=== PATIENT | female | born 1950 | race Caucasian/White ===

== ENCOUNTER → 2022-06-13 | Outpatient (CLI) | payer MEDICARE | LOC: ORTHO 09:30 | PROVIDERS: ATTEND Orthopaedic Surgery | DX: M25.551 Pain in right hip (principal) ==

== ENCOUNTER → 2022-07-21 | Outpatient (CLI) | payer MEDICARE, OTHER ==
--- NOTE | 2022-07-21 16:37 | Diagnostic Imaging Report ---
INDICATION: PAIN AND WEAKNESS OF HIP COMPARISON: 02/28/2022 FINDINGS: 2 radiographic views of the right hip were obtained. There are expected postsurgical changes of previous right hip hemiarthroplasty. There is appropriate anatomic alignment of the femoral component in relation to the acetabulum. The stem of the femoral component is located centrally in the medullary cavity. There is no periprosthetic fracture. No acute fracture or dislocation is identified. No unexpected radiopaque foreign bodies identified. IMPRESSION: Expected postsurgical changes of previous right hip hemiarthroplasty . No evidence of hardware compromise. Dictated by: Dictated on workstation # [id number]
== END ==
LOC: ORTHO 13:44
PROVIDERS: ATTEND Orthopaedic Surgery
DX: M25.551 Pain in right hip (principal); Z96.641 Presence of right artificial hip joint
CPT/HCPCS: 73502; G0463; 99213

== ENCOUNTER → 2022-09-22 | Outpatient (CLI) | payer MEDICARE, OTHER | LOC: ORTHO 14:56 | PROVIDERS: ATTEND Orthopaedic Surgery | DX: M25.551 Pain in right hip (principal) | CPT/HCPCS: 99213 ==

== ENCOUNTER → 2022-11-24 | Outpatient (CLI) | payer MEDICARE, OTHER | LOC: ORTHO 10:01 | PROVIDERS: ATTEND Orthopaedic Surgery | DX: M25.552 Pain in left hip (principal); Z96.642 Presence of left artificial hip joint | CPT/HCPCS: 99213 ==

== ENCOUNTER → 2022-12-27 | Outpatient (CLI) | payer MEDICARE, OTHER | LOC: ORTHO 13:52 | PROVIDERS: ATTEND Orthopaedic Surgery | DX: Z01.89 Encounter for other specified special examinations (principal); M25.551 Pain in right hip; Z96.641 Presence of right artificial hip joint ==

== ENCOUNTER 2023-01-03 05:31 | Outpatient (CLI) | payer MEDICARE, OTHER ==
[~2023-01-03] VITALS: Ht 160 cm; Wt 61.8 kg
[2023-01-03 09:09] LABS: BILIRUBIN,URINE NEGATIVE (NEGATIVE); CLARITY,URINE CLEAR; COLOR,URINE YELLOW; GLUCOSE, URINE (UA) NEGATIVE (NEGATIVE); KETONES,URINE NEGATIVE (NEGATIVE); LEUKOCYTE ESTERASE ,URINE NEGATIVE (NEGATIVE); NITRITE,URINE NEGATIVE (NEGATIVE); PROTEIN,URINE NEGATIVE (NEGATIVE)
[2023-01-03 09:18] LABS: BACTERIA,URINE NEGATIVE /HPF
[2023-01-03] MEDS ORDERED: OMEG1CAP58 PO (09:19)
[2023-01-03] MEDS ORDERED: LEVO75CA5 PO (09:19)
[2023-01-03] MEDS ORDERED: PYRI50CA PO (09:19)
[2023-01-03] MEDS ORDERED: VITA0.4T18 PO (09:19)
[2023-01-03] MEDS ORDERED: VERA240C2 PO (09:19)
[2023-01-03] MEDS ORDERED: DIPH25CA79 PO (09:19)
[2023-01-03] MEDS ORDERED: MAGN250C PO (09:19)
[2023-01-03] MEDS ORDERED: PRAM0.5T2 PO (09:19)
[2023-01-03] MEDS ORDERED: TURM500T PO (09:19)
[2023-01-03] MEDS ORDERED: VITA100033 PO (09:19)
[2023-01-03] MEDS ORDERED: PRAM0.252 PO (09:19)
[2023-01-03] MEDS ORDERED: NF-PYRD60T PO (09:19)
[2023-01-03] MEDS ORDERED: CHOL200025 PO (09:19)
[2023-01-03] MEDS ORDERED: VITA100C23 PO (09:19)
[2023-01-03] MEDS ORDERED: ZINC50TA51 PO (09:19)
[2023-01-03 09:46] VITALS: BP 132/78
--- NOTE | 2023-01-03 16:25 | Diagnostic Imaging Report ---
INDICATION: Preop for hip surgery. No prior studies are available for comparison. FINDINGS: Heart size is normal. There appears to be some minimal infiltrate in the right upper lobe. Otherwise, lungs are clear. No effusion or pneumothorax is detected. There are surgical clips in the right axilla. IMPRESSION: Minimal infiltrate in the right upper lobe. Dictated by: Dictated on workstation # [id number]
== END 2023-01-03 17:42 ==
LOC: PREOP 05:31
PROVIDERS: ATTEND Orthopaedic Surgery
DX: Z01.818 Encounter for other preprocedural examination (principal); M25.551 Pain in right hip
CPT/HCPCS: 71046; 81000; 87081

== ENCOUNTER 2023-01-09 06:35 | Inpatient (IN) | payer MEDICARE, OTHER ==
[2023-01-09] VITALS (12 sets, daily range): BP systolic 102–144; BP diastolic 53–98
[~2023-01-09] VITALS: Ht 160 cm; Wt 61.8 kg
[~2023-01-09 06:35] MED LIST: CHOL200025 PO; DIPH25CA79 PO; LEVO75CA5 PO; MAGN250C PO; NF-PYRD60T PO; OMEG1CAP58 PO; PRAM0.252 PO; PRAM0.5T2 PO; PYRI50CA PO; TURM500T PO; VERA240C2 PO; VITA0.4T18 PO; VITA100033 PO; VITA100C23 PO; ZINC50TA51 PO
[2023-01-09] MEDS ORDERED: ceFAZolin INJECTION 2,000 MG in NS (IVPB) 50 ML IV ONE (06:45)
[2023-01-09] MEDS: LACTATED RINGERS 1,000 ML IV PRN ×3 (07:00→10:40)
[2023-01-09] MEDS ORDERED: proPOfol 200 MG/20 ML (DIPRIVAN) VIAL IV ONE (07:49)
[2023-01-09] MEDS ORDERED: ROCURONIUM 50 MG/5 ML (ZEMURON) VIAL IV ONE (07:49)
[2023-01-09] MEDS ORDERED: fentaNYL INJ 100 MCG/2 ML AMP ONE (07:49)
[2023-01-09] MEDS ORDERED: LIDOCAINE PF 2% 5 ML (XYLOCAINE) VIAL ONE (07:49)
[2023-01-09] MEDS ORDERED: ONDANSETRON 4 MG/2 ML (SDV) Z0FRAN ONE (07:49)
[2023-01-09] MEDS ORDERED: GLYCOPYRROLATE 0.2 MG/ML (ROBINUL) 2 ML VIAL ONE (07:49)
[2023-01-09] MEDS ORDERED: NEOSTIGMINE (BLOXIVERZ ) 1 MG/1ML 10 ML VIAL ONE (07:50)
--- NOTE | 2023-01-09 08:38 | Progress Note-Pre Operative ---
Pre-Operative Progress Note Date of Available H&P: December 27, 2022 Date H&P Reviewed: Jan 09, 2023 Time H&P Reviewed: 08:30 History & Physical: H&P Reviewed, Patient Examed, No changes noted Pre-Operative Diagnosis: Right Hip Pain; History of Right Hip Hemiarthroplasty GREGORY CHIANG MD Jan 09, 2023 08:37
[2023-01-09] MEDS ORDERED: SEVOFLURANE (ULTANE) 15 ML INHAL SOLN ONE (10:23)
--- NOTE | 2023-01-09 10:48 | Anesthesia-General Post-Op ---
General Patient Condition Mental Status/LOC: Same as Preop Cardiovascular: Satisfactory Nausea/Vomiting: Absent Respiratory: Satisfactory Pain: Controlled Complications: Absent Post Op Complications Complications None Follow Up Care/Instructions Patient Instructions None needed. Anesthesia/Patient Condition Patient Condition Patient is doing well, no complaints, stable vital signs, no apparent adverse anesthesia problems. No complications reported per nursing. NILO SHARP CRNA Jan 09, 2023 10:48
[2023-01-09] MEDS ORDERED: morphine INJ 10 MG/ML 1ML (SYR OR VIAL) ONE (10:55)
[2023-01-09] MEDS ORDERED: ONDANSETRON 4 MG/2 ML (SDV) Z0FRAN IVP PRN (11:00)
[2023-01-09] MEDS ORDERED: fentaNYL INJ 100 MCG/2 ML AMP IVP ONE (11:00)
[2023-01-09] MEDS ORDERED: morphine INJ 10 MG/ML 1ML (SYR OR VIAL) IVP ONE (11:00)
--- NOTE | 2023-01-09 11:04 | Operative Report - Ortho ---
Operative Report Surgeon (s)/Administrative Assistant (s) Surgeon GREGORY CHIANG MD Administrative Assistant n/a Pre-Operative Diagnosis Right Hip Pain; History of Right Hip Hemiarthroplasty Post-Operative Diagnosis same Operative Report Date of Procedure: Jan 09, 2023 Name of Procedure Performed: Conversion of Right Hip Hemiarthroplasty to Total Hip Arthroplasty Description & Findings After obtaining informed consent and marking the patient in the preoperative holding area, the patient did receive antibiotics and was taken to the operating room. General anesthesia was induced and patient was positioned in the lateral decubitus position with the right side up. Right lower extremity was prepped and draped in the usual sterile fashion. Surgical timeout was taken. Prior surgical scar was used. Posterolateral approach was utilized. Noted to have an area of disruption in the anterolateral interval. Capsule and external rotators were taken down in one layer. Prior bipolar was dislocated without difficulty. Bone tamp and mallet was used to remove prior head and bipolar component. Acetabulum was exposed. Labrum and soft tissue was removed from the acetabulum. Sequential reaming was began beginning with a 43 mm reamer and reaming to 50 mm. Acetabulum was lavaged with normal saline; a 50 mm cup was impacted into place and had excellent press fit. A polyethylene liner was put into place and impacted to lock; locking was verified with a freer. Attention was turned to the femoral side, neutral 32 mm trial head was put into place. Leg lengths were grossly equal; the hip was stable in position of sleep, and but had some instability in flexion and internal rotation. Hip was dislocated and a +4 mm trial head was placed. This was located and found to be stable. This was accepted. Hip was dislocated. A +4 32 mm oxinium head was impacted onto the pineda taper of the stem. Hip was once again located and found to have grossly equal leg lengths with stability in position of sleep as well as flexion and internal rotation. Dilute betadine soak was performed. Hip was irrigated. Posterior capsule and external rotators were repaired using #2 fiberwire through transosseous tunnels. The prior interval was also repaired with #2 fiberwire. The fascial layer was closed with #2 StrataFix. The subcutaneous layer was closed with 2-0 Vicryl. Skin was closed with zayda. Wound was dressed with xeroform, 4x4s, ABD, and tape. Patient was placed in abduction pillow and transferred to his hospital bed without difficulty and was stable to the recovery room. Anesthesia Type General Estimated Blood Loss 150 mL Specimen(s) collected/removed None GREGORY CHIANG MD Jan 09, 2023 11:04
[2023-01-09] MEDS ORDERED: MILK OF MAGNESIA 400 MG/5 ML 30 ML UDC PO PRN (11:15)
[2023-01-09] MEDS ORDERED: BISACODYL 5 MG (DULCOLAX) TABLET PO PRN (11:15)
[2023-01-09] MEDS ORDERED: ACETAMINOPHEN 500 MG TAB (TYLENOL) PO PRN (11:15)
[2023-01-09] MEDS: ONDANSETRON 4 MG/2 ML (SDV) Z0FRAN IV PRN ×2 (12:47→16:27)
[2023-01-09] MEDS: 1/2 NS IV SOLUTION 1,000 ML IV SCH (12:47)
[2023-01-09] MEDS ORDERED: NF-PYRD60T PO (13:39)
--- NOTE | 2023-01-09 14:06 | Physical Therapy Evaluation ---
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 3-Xkxfskzrri-fxgxtfx completes the activity by him/herself with no assistance from a helper. 5-Set-up or Clean-up Assistance-helper sets up or cleans up; patient completes activity. [place] assists only prior to or following the activity. 4-Supervision or Touching Assistance-helper provides verbal cues and/or touching/steadying and/or contact guard assistance as patient completes activity. Assistance may be provided throughout the activity or intermittently. 3-Partial/Moderate Assistance-helper does LESS THAN HALF the effort. [place] lifts, holds or supports trunk or limbs, but provides less than half the effort. 2-Substantial/Maximal Assistance-helper does MORE THAN HALF the effort. [place] lifts or holds trunk or limbs and provides more than half the effort. 0-Vvtvtcxpx-pfpzqz does ALL the effort. Patient does none of the effort to complete the activity. Or, the assistance of 2 or more helpers is required for the patient to complete the activity. If activity was not attempted, code reason: 7-Patient Refused. 9-Not Applicable-not attempted and the patient did not perform the activity before the current illness, exacerbation or injury. 10-Not Attempted due to Environmental Limitations-(lack of equipment, weather restraints, etc.). 88-Not Attempted due to Medical Conditions or Safety Concerns. Bed Mobility: 6 Transfers (B,C,W/C): 6 Gait: 6 Stairs: 6 Indoor Mobility (Ambulation): Independent Stairs: Independent Prior Devices Use: Other-see list below Prior Device Use: cane PT Evaluation-Current Subjective Patient agrees to PT. Pain Numeric Pain Scale: 10-Worst Possible Pain Location: Right Location Body Site: Hip Pain Description: Acute Comment: with movement Objective Patient Orientation: Normal For Age Attachments: Lyn Catheter, IV ROM/Strength ROM Lower Extremities right hip precautions (patient able to recite independently)/left LE WFL Strength Lower Extremities right LE NT/left LE 3/5 grossly Integumentary/Posture Integumentary refer to nursing notes Bowel Incontinence: No Bladder Incontinence: Lyn Cath Posture WFL Neuromuscular (Tone, Coordination, Reflexes) grossly intact Sensory Vision: Functional Hearing: Functional Transfers Sit to Lying (QC): 1 Lying to Sitting/Side of Bed(Q: 1 Sit to Stand (QC): 88 Gait Does the Patient Walk?: No and Walking Goal IS indicated Mode of Locomotion: Walk Anticipated Mode of Locomotion: Walk Walk 10 feet (QC): 88 Gait Assistive Device: FWW Balance Sitting Static: Fair Sitting Dynamic: Poor Assessment/Needs Patient will benefit from skilled PT to address functional strength and mobility to improve current LOF to safely return to home with spouse at maximum LOF. Rehab Potential: Fair PT Short Term Goals Short Term Goals Time Frame: Jan 19, 2023 Roll Left & Right: 4 Sit to lyin Lying to sitting on side of be: 4 Sit to stand: 4 Chair/hjr-aj-ecdud transfer: 4 Toilet transfer: 4 Walk 10 feet: 3 Walk 50 feet with two turns: 3 PT Skilled Nursing Goals Processes Chemical Design Engineer Goals PT Skilled Nursing Goals Time Frame: Jan 28, 2023 Roll Left & Right (QC): 6 Sit to Lying (QC): 6 Lying-Sitting on Side/Bed(QC): 6 Sit to Stand (QC): 5 Chair/Kwv-yo-Mghxw Xfer(QC): 5 Toilet Transfer (QC): 5 Walk 10 feet (QC): 5 Walk 50ft with 2 Turns (QC): 5 Walk 150 ft (QC): 5 PT Plan Problem List Problem List: Activity Tolerance, Functional Strength, Safety, Balance, Gait, Transfer, Bed Mobility Treatment/Plan Treatment Plan: Continue Plan of Care Treatment Plan: Bed Mobility, Education, Functional Activity Lona, Functional Strength, Gait, Safety, Therapeutic Exercise, Transfers Treatment Duration: Jan 28, 2023 Frequency: 11 times per week Estimated Hrs Per Day: .5 hour per day Patient and/or Family Agrees t: Yes Time Time In: 1330 Time Out: 1352 DATE: Jan 09, 2023 Total Billed Treatment Time: 22 Total Billed Treatment 1 visit [facility] 22 min SHANNAN SANTOS PT Jan 09, 2023 14:06
--- NOTE | 2023-01-09 14:10 | Diagnostic Imaging Report ---
CLINICAL INDICATION: Postop hip replacement. EXAM: X-ray pelvis AP view. COMPARISON: Outside x-ray of the pelvis right hip dated 02/23/2022 from [facility]. FINDINGS: Right total hip arthroplasty is again seen. There are skin zayda overlying the right hip and air overlying the right hip region. Hardware components in good position. There are no significant bony abnormality. IMPRESSION: There is a revision right total hip arthroplasty components in good position. There is no unexpected radiodense foreign object. Dictated by: Dictated on workstation # [id number]
[2023-01-09] MEDS ORDERED: PATIENT MAY USE OWN MED,SINGLE MED PO SCH ×4 (15:45)
[2023-01-09] MEDS ORDERED: PRAMIPEXOLE 0.5 MG TAB (MIRAPEX) PO SCH (16:00)
[2023-01-09] MEDS: morphine INJ 4 MG/ML 1 ML (VIAL/SYRINGE) IVP PRN ×2 (16:27→19:35)
[2023-01-09] MEDS: ceFAZolin INJECTION 2,000 MG in NS (IVPB) 50 ML IV SCH ×2 (16:28→21:12)
[2023-01-09] MEDS: PRAMIPEXOLE 0.5 MG TAB (MIRAPEX) PO SCH ×2 (16:33→21:14)
[2023-01-09] MEDS: ASPIRIN E.C. 81 MG (ECOTRIN) TAB PO SCH (17:51)
[2023-01-09] MEDS ORDERED: PRAMIPEXOLE 0.125 MG (MIRAPEX) TABLET PO SCH (20:00)
[2023-01-09] MEDS ORDERED: NON-FORMULARY MEDICATION 1 EA EA (Pramipexole Di-HCl (Mirapex) 0.25 MG) PO SCH (21:00)
[2023-01-09] MEDS: DOCUSATE SODIUM 100 MG (COLACE) CAP PO SCH (21:13)
[2023-01-09] MEDS: CELECOXIB 100 MG (CeleBREX) CAP PO SCH (21:13)
[2023-01-09] MEDS: PYRIDOSTIGMINE 60 MG TAB (MESTINON) NON-FORMULARY PO SCH (21:16)
[2023-01-10] MEDS: morphine INJ 4 MG/ML 1 ML (VIAL/SYRINGE) IVP PRN ×2 (00:24→04:03)
[2023-01-10] MEDS: 1/2 NS IV SOLUTION 1,000 ML IV SCH ×2 (02:22→16:15)
[2023-01-10 03:35] VITALS: BP 113/59
[2023-01-10] MEDS: PRAMIPEXOLE 0.5 MG TAB (MIRAPEX) PO SCH ×4 (05:55→20:00)
[2023-01-10] MEDS: LEVOTHYROXINE 75 MCG (LEVOTHROID) TABLET PO SCH (05:55)
[2023-01-10] MEDS: MULTIVIT W/MINERALS TAB (THERAGRAN M) PO SCH (05:56)
[2023-01-10 07:25] VITALS: BP 106/59
[2023-01-10] MEDS: ONDANSETRON 4 MG/2 ML (SDV) Z0FRAN IV PRN ×2 (08:44→18:04)
[2023-01-10] MEDS: DOCUSATE SODIUM 100 MG (COLACE) CAP PO SCH ×2 (08:44→20:00)
[2023-01-10] MEDS: MAGNESIUM OXIDE (MAG-OX)400 MG TAB PO SCH (08:45)
[2023-01-10] MEDS: ASPIRIN E.C. 81 MG (ECOTRIN) TAB PO SCH ×2 (08:45→17:46)
[2023-01-10] MEDS: VERAPAMIL SR 240 MG (CALAN SR) TAB PO SCH (08:45)
[2023-01-10] MEDS: CELECOXIB 100 MG (CeleBREX) CAP PO SCH ×2 (08:45→19:59)
[2023-01-10] MEDS: PYRIDOXINE (VITAMIN B-6) 50 MG TABLET PO SCH (08:46)
[2023-01-10] MEDS: diphenhydrAMINE 25 MG TAB (BENADRYL) PO SCH (08:46)
[2023-01-10] MEDS: PYRIDOSTIGMINE 60 MG TAB (MESTINON) NON-FORMULARY PO SCH ×2 (08:47→19:58)
[2023-01-10] MEDS ORDERED: MAGNESIUM CITRATE AND OXIDE 250 MG PO SCH (09:00)
[2023-01-10] MEDS ORDERED: NON-FORMULARY MEDICATION 1 EA EA (Levothyroxine Sodium (Levothyroxine) 75 MCG) PO SCH (09:00)
[2023-01-10] MEDS ORDERED: NON-FORMULARY MEDICATION 1 EA EA (Verapamil HCl (Verapamil ER) 240 MG) PO SCH (09:00)
[2023-01-10] MEDS ORDERED: NON-FORMULARY MEDICATION 1 EA EA (Diphenhydramine HCl (Benadryl) 25 MG) PO SCH (09:00)
[2023-01-10] MEDS ORDERED: PYRIDOXINE HCL 50 MG PO SCH (09:00)
--- NOTE | 2023-01-10 10:02 | Progress Note - Ortho ---
Progress Note Subjective Date of Exam 01/10/23 Chief Complaint POD #1 Conversion to R CARLITA HPI/Events since last exam has issues with nausea, restless leg, overall anxiety, concerned about moving, has had issues with pain medication Review of Systems - Allergies: Coded Allergies: ciprofloxacin (Verified Allergy, Intermediate, Nausea, 01/03/23) codeine (Verified Allergy, Intermediate, Itching, 01/03/23) levofloxacin (Verified Allergy, Intermediate, Nausea, 01/03/23) NAUSEA, WOOZY, [place] ofloxacin (Verified Allergy, Intermediate, Nausea, 01/03/23) Home Meds Reported Medications Pyridostigmine Carmel (Mestinon) 60 Mg Tab, 60 MG PO DAILY PRN for DOUBLE VISION, TAB 01/09/23 Vitamin K2 (Vitamin K2) 100 Mcg Capsule, 100 MCG PO DAILY, CAP 01/03/23 Vitamin E Mixed (Vitamin E) 1,000 Unit Capsule, 1000 UNIT PO DAILY, CAP 01/03/23 Cholecalciferol (Vitamin D3) (Vitamin D3) 50 Mcg (2000 Unit) Tablet, 50 MCG PO DAILY, TAB 01/03/23 Pyridoxine HCl (Vitamin B-6) 50 Mg Capsule, 50 MG PO DAILY, CAP 01/03/23 Diphenhydramine HCl (Benadryl) 25 Mg Capsule, 25 MG PO DAILY, CAP 01/03/23 Magnesium Citrate and Oxide (Magnesium) 250 Mg Capsule, 250 MG PO DAILY, CAP 01/03/23 Turmeric Root Extract (Turmeric) 500 Mg Tablet, 500 MG PO DAILY, TAB 01/03/23 Vitamin B Complex/Folic Acid (Super B Maxi Complex Caplet) 0.4 Mg Tablet, 0.4 MG PO DAILY, TAB 01/03/23 Zinc Amino Acid Chelate (Zinc) 50 Mg Tablet, 50 MG PO DAILY, TAB 01/03/23 Warners-3 Fatty Acids/Fish Oil (Warners 3 1,000 mg Softgel) 300 Mg-1,000 Mg Capsule, 1 EACH PO BID, CAP 01/03/23 Levothyroxine Sodium (Levothyroxine) 75 Mcg Capsule, 75 MCG PO DAILY, CAP 01/03/23 Pramipexole Di-HCl (Mirapex) 0.5 Mg Tablet, 0.5 MG PO 0700,1600, TAB 01/03/23 Pramipexole Di-HCl (Mirapex) 0.25 Mg Tablet, 0.25 MG PO 1200,2000, TAB 01/03/23 Pyridostigmine Carmel (Mestinon) 60 Mg Tab, 60 MG PO 0700,1200, TAB 01/03/23 Verapamil HCl (Verapamil ER) 240 Mg Cap24h.pel, 240 MG PO DAILY, CAP 01/03/23 Objective Exam R Hip: Dressing C/D/I, +DF of ankle, no s/s of DVT Vital Signs Vital Signs Date Time Temp Pulse Resp B/P (MAP) Pulse Ox O2 Delivery O2 Flow Rate FiO2 01/10/23 08:00 Room Air 01/10/23 07:25 36.4 62 16 106/59 (75) 97 Room Air 01/10/23 03:35 36.0 69 16 113/59 (77) 93 Room Air 0.00 0.00 01/09/23 23:25 36.9 64 16 102/61 (75) 97 Room Air 0.00 0.00 01/09/23 20:00 Room Air 01/09/23 19:13 36.8 79 16 130/90 (103) Room Air 0.00 01/09/23 15:53 36.9 90 18 144/98 (113) 91 Room Air 01/09/23 15:45 36.4 78 18 125/57 (79) 98 Room Air 01/09/23 12:04 36.0 71 18 113/58 (76) 95 Room Air 01/09/23 11:45 Room Air 01/09/23 11:30 36.2 15 109/63 (78) 97 Room Air 01/09/23 11:30 Room Air 01/09/23 11:20 16 115/53 (73) 96 Room Air 01/09/23 11:15 Room Air 01/09/23 11:10 16 130/67 (88) 100 OxyMask 2.00 01/09/23 11:00 20 126/56 (79) 99 OxyMask 2.00 01/09/23 11:00 OxyMask 2.00 01/09/23 10:50 18 117/63 (81) 96 OxyMask 4.00 01/09/23 10:40 36.3 20 123/83 (96) 99 OxyMask 6.00 01/09/23 10:40 OxyMask 6.00 I & O 01/10/23 07:00 Intake Total 3130 ml Output Total 1195 ml Balance 1935 ml Lab Results Laboratory Tests 01/10/23 04:22: Hemoglobin 10.0L, Hematocrit 29L Imaging AP Pelvis from postop demonstrates appropriate position of components without complication Assessment and Plan Assessment R Hip Pain s/p Conversion of Hemiarthroplasty to CARLITA Problem List R Hip Pain s/p Conversion of Hemiarthroplasty to CARLITA Plan PT/OT Pain Control DVT Prophylaxis Home with Home Health tomorrow versus Will have her evaluated for acute rehab just in case Final Diagonsis R Hip Pain s/p Conversion of Hemiarthroplasty to CARLITA Level of the visit: Level 3 (global) GREGORY CHIANG MD Jan 10, 2023 10:02
--- NOTE | 2023-01-10 11:11 | Occupational Therapy Eval ---
OT Evaluation-General/PLF Medical Diagnosis Admission Date Medical Diagnosis: right hip pain Onset Date: Jan 09, 2023 Therapy Diagnosis Therapy Diagnosis: weakness Precautions Precautions/Isolations: Standard Precautions Weight Bear Status Weight Bearing Restriction: Weight Bearing/Tolerated Location Restriction: R LE Conversion to R CARLITA Referral Physician: Carla Referral Reason: Activity Tolerance, Self Care, Evaluation/Treatment Medical History Pertinent Medical History: Neuropathy Reviewed History: Yes Social History Home: Single Level Current Living Status: Spouse ADL-Prior Level of Function SCALE: Activities may be completed with or without assistive devices. 6-Pbujpzhlxt-pqkhjdg completes the activity by him/herself with no assistance from a helper. 5-Set-up or Clean-up Assistance-helper sets up or cleans up; patient completes activity. [place] assists only prior to or following the activity. 4-Supervision or Touching Assistance-helper provides verbal cues and/or touch ing/steadying and/or contact guard assistance as patient completes activity. Assistance may be provided throughout the activity or intermittently. 3-Partial/Moderate Assistance-helper does LESS THAN HALF the effort. [place] lifts, holds or supports trunk or limbs, but provides less than half the effort. 2-Substantial/Maximal Assistance-helper does MORE THAN HALF the effort. [place] lifts or holds trunk or limbs and provides more than half the effort. 0-Srcydtpfy-oitzli does ALL the effort. Patient does none of the effort to complete the activity. Or, the assistance of 2 or more helpers is required for the patient to complete the activity. If activity was not attempted, code reason: 7-Patient Refused. 9-Not Applicable-not attempted and the patient did not perform the activity before the current illness, exacerbation or injury. 10-Not Attempted due to Environmental Limitations-(lack of equipment, weather restraints, etc.). 88-Not Attempted due to Medical Conditions or Safety Concerns. Self Care: Independent Functional Cognition: Independent DME/Equipment Comments Patient did not use ADS at home, requires instruction for use of FWW with ADL, transfers and functional activity Drive Self: Yes OT Current Status Subjective Laying in bed, c/o nausea, not feeling like eating, mot wanting to take medication on empty stomach. Multitude of choices presented to patient for PO intake. Patient agreed to BROTH and then refused to drink Mental Status/Objective Patient Orientation: Person, Place, Time, Situation Current Glasses/Contacts: Yes Upper Extremity ROM BUE ROM WFLS Upper Extremity Coordination BUE WFLS Upper Extremity Strength -4/5 B UE, patient does not safely lower self to sitting position BUE weakness ADL-Treatment Eating (QC): 5 (regular diet) Oral Hygiene (QC): 5 Shower/Bathe Self (QC): 7 Upper Body Dressing (QC): 4 Lower Body Dressing (QC): 4 On/Off Footwear (QC): 3 Toileting Hygiene (QC): 4 Education OT Patient Education: Correct positioning, Modified ADL techniques, Progress toward Goal/Update tx plan, Purpose of tx/functional activities, Reviewed precautions, Rehab process, Safety issues, Transfer techniques, Use of adapted equipment Teaching Recipient: Patient, Family (spouse present) Teaching Methods: Demonstration, Discussion Response to Teaching: Verbalize Understanding, Reinforcement Needed Patient has multitude of questions and OT answers until all needs met OT Skilled Nursing Goals Jewelry Maker Goals Eating (QC): 6 Oral Hygiene (QC): 6 Toileting Hygiene (QC): 6 Shower/Bathe Self (QC): 5 Upper Body Dressing (QC): 6 Lower Body Dressing (QC): 6 On/Off Footwear (QC): 6 Patient will follow all Post op restriction w/I/ADLS and functional mobility independently with ADS 1=Demonstrate adherence to instructed precautions during ADL tasks. 2=Patient will verbalize/demonstrate understanding of assistive devices/modifications for ADL. 3=Patient will improve strength/tolerance for activity to enable patient to perform ADL's. OT Education/Plan Problem List/Assessment Assessment: Decreased Activ Tolerance, Impaired Self-Care Skills Discharge Recommendations Plan/Recommendations: Continue POC Therapy Discharge Recommendati: Post Acute OT Equpiment Recommendations-D/C: Hip Kit Treatment Plan/Plan of Care Treatment,Training & Education: Yes Patient would benefit from OT for education, treatment and training to promote independence in ADL's, mobility, safety and/or upper extremity function for ADL's. Plan of Care: ADL Retraining, Functional Mobility, Group Exercise/Act as Ind, UE Funct Exercise/Act Treatment Duration: Jan 14, 2023 Frequency: 3 times per week (3-5 times per week) Estimated Hrs Per Day: .25 hour per day Agreement: Yes Rehab Potential: Good Time Start Time: 08:30 Stop Time: 08:47 DATE: Jan 10, 2023 Total Time Billed (hr/min): 17 Billed Treatment Time EVM 17 min MELANIE POSADAS OT Jan 10, 2023 11:11
--- NOTE | 2023-01-10 11:12 | Physical Therapy Daily Note ---
PT Daily Note-Current Subjective Patient agrees to therapy. Pain Section J - Health Conditions 1. Rarely or not at all 2. Occasionally 3. Frequently 4. Almost constantly 8. Unable to answer Pain Effect on Sleep: 3 Pain Interference with Therapy: 3 Pain Interference w/Day-to-Day: 3 Mental Status Patient Orientation: Normal For Age Attachments: Lyn Catheter, IV Transfers SCALE: Activities may be completed with or without assistive devices. 2-Sjhdwiwdiw-vfbhyss completes the activity by him/herself with no assistance from a helper. 5-Set-up or Clean-up Assistance-helper sets up or cleans up; patient completes activity. [place] assists only prior to or following the activity. 4-Supervision or Touching Assistance-helper provides verbal cues and/or touching/steadying and/or contact guard assistance as patient completes activity. Assistance may be provided throughout the activity or intermittently. 3-Partial/Moderate Assistance-helper does LESS THAN HALF the effort. [place] lifts, holds or supports trunk or limbs, but provides less than half the effort. 2-Substantial/Maximal Assistance-helper does MORE THAN HALF the effort. [place] lifts or holds trunk or limbs and provides more than half the effort. 0-Wmhmczpqt-sqokkq does ALL the effort. Patient does none of the effort to complete the activity. Or, the assistance of 2 or more helpers is required for the patient to complete the activity. If activity was not attempted, code reason: 7-Patient Refused. 9-Not Applicable-not attempted and the patient did not perform the activity before the current illness, exacerbation or injury. 10-Not Attempted due to Environmental Limitations-(lack of equipment, weather restraints, etc.). 88-Not Attempted due to Medical Conditions or Safety Concerns. Lying to Sitting/Side of Bed(Q: 4 Sit to Stand (QC): 4 Chair/Qyq-fd-Mphdr Xfer(QC): 4 Weight Bearing Right Lower Extremity: Right Weight Bearing/Tolerated Left Lower Extremity: Left Full Weight Bearing Gait Training Distance: 175' Walk 10 feet (QC): 4 Walk 50 ft with 2 Turns(QC): 4 Walk 150 ft (QC): 4 Gait Assistive Device: FWW slow, antalgic, functional gait sequence Exercises Supine Ex: Ankle pumps, Quad Set, Heel Slides Supine Reps: 12 Seated Therapy Exercises: Long arc quads Seated Reps: 12 Assessment Patient tolerated treatment well and is up in recliner with needs met. Patient does c/o nausea with RN notified. PT to increase activity as tolerated by patient. PT Short Term Goals Short Term Goals Time Frame: Jan 19, 2023 Roll Left & Right: 4 Sit to lyin Lying to sitting on side of be: 4 Sit to stand: 4 Chair/wzj-tq-nwaib transfer: 4 Toilet transfer: 4 Walk 10 feet: 3 Walk 50 feet with two turns: 3 PT Prison Goals Laundry Operator Finishing Goals PT Prison Goals Time Frame: Jan 28, 2023 Roll Left & Right (QC): 6 Sit to Lying (QC): 6 Lying-Sitting on Side/Bed(QC): 6 Sit to Stand (QC): 5 Chair/Luf-mo-Ajtah Xfer(QC): 5 Toilet Transfer (QC): 5 Walk 10 feet (QC): 5 Walk 50ft with 2 Turns (QC): 5 Walk 150 ft (QC): 5 PT Plan Treatment/Plan Treatment Plan: Continue Plan of Care Treatment Plan: Bed Mobility, Education, Functional Activity Lona, Functional Strength, Gait, Safety, Therapeutic Exercise, Transfers Treatment Duration: Jan 28, 2023 Frequency: 11 times per week Estimated Hrs Per Day: .5 hour per day Patient and/or Family Agrees t: Yes Time Time In: 830 Time Out: 853 DATE: Jan 10, 2023 Total Billed Treatment Time: 23 Total Billed Treatment 1 visit EX 9 min GT 14 min SHANNAN SANTOS PT Jan 10, 2023 11:12
[2023-01-10 11:49] VITALS: BP 113/58
--- NOTE | 2023-01-10 13:36 | Physical Therapy Daily Note ---
PT Daily Note-Current Subjective Patient agrees to PT. Pain Section J - Health Conditions 1. Rarely or not at all 2. Occasionally 3. Frequently 4. Almost constantly 8. Unable to answer Pain Effect on Sleep: 3 Pain Interference with Therapy: 3 Pain Interference w/Day-to-Day: 3 Mental Status Patient Orientation: Normal For Age Attachments: Lyn Catheter, IV Transfers SCALE: Activities may be completed with or without assistive devices. 4-Kzgdrngtxr-xyqpbhn completes the activity by him/herself with no assistance from a helper. 5-Set-up or Clean-up Assistance-helper sets up or cleans up; patient completes activity. [place] assists only prior to or following the activity. 4-Supervision or Touching Assistance-helper provides verbal cues and/or touching/steadying and/or contact guard assistance as patient completes activity. Assistance may be provided throughout the activity or intermittently. 3-Partial/Moderate Assistance-helper does LESS THAN HALF the effort. [place] lifts, holds or supports trunk or limbs, but provides less than half the effort. 2-Substantial/Maximal Assistance-helper does MORE THAN HALF the effort. [place] lifts or holds trunk or limbs and provides more than half the effort. 8-Gcgduuhhg-ihzile does ALL the effort. Patient does none of the effort to complete the activity. Or, the assistance of 2 or more helpers is required for the patient to complete the activity. If activity was not attempted, code reason: 7-Patient Refused. 9-Not Applicable-not attempted and the patient did not perform the activity before the current illness, exacerbation or injury. 10-Not Attempted due to Environmental Limitations-(lack of equipment, weather restraints, etc.). 88-Not Attempted due to Medical Conditions or Safety Concerns. Sit to Stand (QC): 4 Weight Bearing Right Lower Extremity: Right Weight Bearing/Tolerated Left Lower Extremity: Left Full Weight Bearing Gait Training Distance: 250' Walk 10 feet (QC): 4 Walk 50 ft with 2 Turns(QC): 4 Walk 150 ft (QC): 4 Gait Assistive Device: FWW slow, reciprocal pattern Assessment Patient much improved this p.m. with increase in functional distance. Plan dismissal to home this week with spouse and home health. PT Short Term Goals Short Term Goals Time Frame: Jan 19, 2023 Roll Left & Right: 4 Sit to lyin Lying to sitting on side of be: 4 Sit to stand: 4 Chair/qex-xa-eyvzm transfer: 4 Toilet transfer: 4 Walk 10 feet: 3 Walk 50 feet with two turns: 3 PT Tool And Die Supervisor Goals Tool And Die Supervisor Goals PT Skilled Nursing Goals Time Frame: Jan 28, 2023 Roll Left & Right (QC): 6 Sit to Lying (QC): 6 Lying-Sitting on Side/Bed(QC): 6 Sit to Stand (QC): 5 Chair/Kgc-cq-Ytywj Xfer(QC): 5 Toilet Transfer (QC): 5 Walk 10 feet (QC): 5 Walk 50ft with 2 Turns (QC): 5 Walk 150 ft (QC): 5 PT Plan Treatment/Plan Treatment Plan: Continue Plan of Care Treatment Plan: Bed Mobility, Education, Functional Activity Lona, Functional Strength, Gait, Safety, Therapeutic Exercise, Transfers Treatment Duration: Jan 28, 2023 Frequency: 11 times per week Estimated Hrs Per Day: .5 hour per day Patient and/or Family Agrees t: Yes Time Time In: 1315 Time Out: 1331 DATE: Jan 10, 2023 Total Billed Treatment Time: 16 Total Billed Treatment 1 visit GT 16 min SHANNAN SANTOS PT Jan 10, 2023 13:36
[2023-01-10 15:30] VITALS: BP 114/55
[2023-01-10 19:21] VITALS: BP 103/62
[2023-01-10 23:28] VITALS: BP 106/52
[2023-01-11 03:30] VITALS: BP 101/50
[2023-01-11 05:32] LABS: HEMOGLOBIN 9.2 g/dL (11.5-16.0)
[2023-01-11] MEDS: MULTIVIT W/MINERALS TAB (THERAGRAN M) PO SCH (06:08)
[2023-01-11] MEDS: LEVOTHYROXINE 75 MCG (LEVOTHROID) TABLET PO SCH (06:09)
[2023-01-11] MEDS: PRAMIPEXOLE 0.5 MG TAB (MIRAPEX) PO SCH (06:09)
[2023-01-11 07:25] VITALS: BP 102/51
[2023-01-11] MEDS: PYRIDOSTIGMINE 60 MG TAB (MESTINON) NON-FORMULARY PO SCH (08:14)
[2023-01-11] MEDS: ASPIRIN E.C. 81 MG (ECOTRIN) TAB PO SCH (08:15)
[2023-01-11] MEDS: VERAPAMIL SR 240 MG (CALAN SR) TAB PO SCH (08:15)
[2023-01-11] MEDS: PYRIDOXINE (VITAMIN B-6) 50 MG TABLET PO SCH (08:15)
[2023-01-11] MEDS: diphenhydrAMINE 25 MG TAB (BENADRYL) PO SCH (08:15)
[2023-01-11] MEDS: MAGNESIUM OXIDE (MAG-OX)400 MG TAB PO SCH (08:15)
[2023-01-11] MEDS ORDERED: ACET-93 PO (08:23)
[2023-01-11] MEDS: CELECOXIB 100 MG (CeleBREX) CAP PO SCH (08:23)
[2023-01-11] MEDS ORDERED: ASPI-1238 PO (08:23)
[2023-01-11] MEDS: DOCUSATE SODIUM 100 MG (COLACE) CAP PO SCH (08:23)
--- NOTE | 2023-01-11 08:28 | Discharge Summary ---
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 Tolerated the procedure well and was admitted to the regular floor. On POD #1, had multiple difficulties with nausea, pain control, and irritation from restless leg syndrome. Pain medication was adjusted. Patient was able to work with therapy. Made reasonable progress. On POD #2, significantly improved. Tolerated PO diet. Continued to improve with therapy. Ready for discharge and requested to do outpatient therapy.] Labs and Pending Lab Test: Laboratory Tests 01/11/23 05:23: Hemoglobin 9.2L, Hematocrit 27L Home Meds Active Acetaminophen 500 Mg Tablet 1,000 Mg PO Q8H PRN 30 Days Aspirin EC (Aspirin) 81 Mg Tablet.dr 81 Mg PO BID WITH MEALS 35 Days Reported Mestinon (Pyridostigmine [place]) 60 Mg Tab 60 Mg PO DAILY PRN Vitamin K2 100 Mcg Capsule 100 Mcg PO DAILY Vitamin E (Vitamin E Mixed) 1,000 Unit Capsule 1,000 Unit PO DAILY Vitamin D3 (Cholecalciferol (Vitamin D3)) 50 Mcg (2000 Unit) Tablet 50 Mcg PO DAILY Vitamin B-6 (Pyridoxine HCl) 50 Mg Capsule 50 Mg PO DAILY Benadryl (Diphenhydramine HCl) 25 Mg Capsule 25 Mg PO DAILY Magnesium (Magnesium Citrate and Oxide) 250 Mg Capsule 250 Mg PO DAILY Turmeric (Turmeric Root Extract) 500 Mg Tablet 500 Mg PO DAILY Super B Maxi Complex Caplet (Vitamin B Complex/Folic Acid) 0.4 Mg Tablet 0.4 Mg PO DAILY Zinc (Zinc Amino Acid Chelate) 50 Mg Tablet 50 Mg PO DAILY [place] 3 1,000 mg Softgel ([place]-3 Fatty Acids/Fish Oil) 300 Mg-1,000 Mg Capsule 1 Each PO BID Levothyroxine (Levothyroxine Sodium) 75 Mcg Capsule 75 Mcg PO DAILY Mirapex (Pramipexole Di-HCl) 0.5 Mg Tablet 0.5 Mg PO 0700,1600 Mirapex (Pramipexole Di-HCl) 0.25 Mg Tablet 0.25 Mg PO 1200,2000 Mestinon (Pyridostigmine [place]) 60 Mg Tab 60 Mg PO 0700,1200 Verapamil ER (Verapamil HCl) 240 Mg Cap24h.pel 240 Mg PO DAILY Assessment/Pt Instructions WBAT on Right Hip with walker. Adhere to posterior hip dislocation precautions. Therapy orders sent through [facility]. F/U with Dr. Aguirre for staple removal and wound check on 01/24/23 in office. Discharge Instructions Discharge Diet: No Restrictions Discharge Physical Examination Vital Signs Vital Signs Date Time Temp Pulse Resp B/P (MAP) Pulse Ox O2 Delivery O2 Flow Rate FiO2 01/11/23 07:25 36.2 66 18 102/51 (68) 95 Room Air 01/10/23 19:21 0.00 Extremity: Other (R Hip: Incision C/D/I, +DF of ankle, no s/s of DVT) Allergies: Coded Allergies: ciprofloxacin (Verified Allergy, Intermediate, Nausea, 01/03/23) codeine (Verified Allergy, Intermediate, Itching, 01/03/23) levofloxacin (Verified Allergy, Intermediate, Nausea, 01/03/23) NAUSEA, WOOZY, [place] ofloxacin (Verified Allergy, Intermediate, Nausea, 01/03/23) Discharge Summary Date of Admission Jan 10, 2023 at 12:28 Date of Discharge GREGORY AGUIRRE MD Jan 11, 2023 08:28
--- NOTE | 2023-01-11 10:20 | Physical Therapy Daily Note ---
PT Daily Note-Current Subjective Patient sitting in chair with in the room upon PT arrival, agreeable to treatment. Patient rates pain at 6/10 in right hip. Pain Section J - Health Conditions 1. Rarely or not at all 2. Occasionally 3. Frequently 4. Almost constantly 8. Unable to answer Pain Effect on Sleep: 3 Pain Interference with Therapy: 3 Pain Interference w/Day-to-Day: 3 Mental Status Patient Orientation: Person Transfers SCALE: Activities may be completed with or without assistive devices. 4-Kkihbmtqxt-vdqphpp completes the activity by him/herself with no assistance from a helper. 5-Set-up or Clean-up Assistance-helper sets up or cleans up; patient completes activity. [place] assists only prior to or following the activity. 4-Supervision or Touching Assistance-helper provides verbal cues and/or touching/steadying and/or contact guard assistance as patient completes activity. Assistance may be provided throughout the activity or intermittently. 3-Partial/Moderate Assistance-helper does LESS THAN HALF the effort. [place] lifts, holds or supports trunk or limbs, but provides less than half the effort. 2-Substantial/Maximal Assistance-helper does MORE THAN HALF the effort. [place] lifts or holds trunk or limbs and provides more than half the effort. 0-Dlojggmgy-ewnggr does ALL the effort. Patient does none of the effort to complete the activity. Or, the assistance of 2 or more helpers is required for the patient to complete the activity. If activity was not attempted, code reason: 7-Patient Refused. 9-Not Applicable-not attempted and the patient did not perform the activity before the current illness, exacerbation or injury. 10-Not Attempted due to Environmental Limitations-(lack of equipment, weather restraints, etc.). 88-Not Attempted due to Medical Conditions or Safety Concerns. Sit to Stand (QC): 6 Chair/Wrj-wl-Rcshb Xfer(QC): 6 Weight Bearing Right Lower Extremity: Right Weight Bearing/Tolerated Left Lower Extremity: Left Full Weight Bearing Gait Training Does the Patient Walk?: Yes Distance: 200' Walk 10 feet (QC): 6 Walk 50 ft with 2 Turns(QC): 6 Walk 150 ft (QC): 6 Gait Assistive Device: FWW Stair Training Stair Training: Handrails/: 1 handrail #of Steps: 20 1 Step (curb) (QC): 4 4 Steps (QC): 4 12 Steps (QC): 4 Stairs: Pattern: Step to Assessment Current Status: Good Progress Patient tolerated treatment well. Performs all observed transfers with independence. Patient ambulates to the stairs with FWW, with independence. Patient ascends/descends 10 steps x 2 with right hand on rail ascending, cane in left hand, then opposite for descending. Patient reports they have 8 steps, then a landing, then another 8 steps. Reports ascending, the first set of steps, the handrail is on the right side, second set of steps is on the left side. No handrails on the landing. Patient and were educated that when she had to use the steps, once she is stable at the bottom or top of the stairs with cane in one hand and handrail being held by the other, the will bring the FWW to the landing to aide in her gait from set of steps to the other. Patient in chair post treatment with in the room, all needs met, nursing notified, call light in reach. Patient discharging to home this morning. PT Short Term Goals Short Term Goals Time Frame: Jan 19, 2023 Roll Left & Right: 4 Sit to lyin Lying to sitting on side of be: 4 Sit to stand: 4 Chair/bqh-gv-piidb transfer: 4 Toilet transfer: 4 Walk 10 feet: 3 Walk 50 feet with two turns: 3 PT Cnc Operator Programmer Goals Cnc Operator Programmer Goals PT Care Home Goals Time Frame: Jan 28, 2023 Roll Left & Right (QC): 6 Sit to Lying (QC): 6 Lying-Sitting on Side/Bed(QC): 6 Sit to Stand (QC): 5 Chair/Lqb-rf-Vqogq Xfer(QC): 5 Toilet Transfer (QC): 5 Walk 10 feet (QC): 5 Walk 50ft with 2 Turns (QC): 5 Walk 150 ft (QC): 5 PT Plan Treatment/Plan Treatment Plan: Continue Plan of Care Treatment Plan: Bed Mobility, Education, Functional Activity Lona, Functional Strength, Gait, Safety, Therapeutic Exercise, Transfers Treatment Duration: Jan 28, 2023 Frequency: 11 times per week Estimated Hrs Per Day: .5 hour per day Patient and/or Family Agrees t: Yes Safety Risks/Education Patient Education: Gait Training, Transfer Techniques, Steps Teaching Recipient: Patient, Family Teaching Methods: Demonstration, Discussion Response to Teaching: Verbalize Understanding, Return Demonstration Time Time In: 922 Time Out: 934 DATE: Jan 11, 2023 Total Billed Treatment Time: 12 Total Billed Treatment Visit, GT KATLYN SAUCEDO PT Jan 11, 2023 10:20
--- NOTE | 2023-01-11 11:28 | Occupational Ther Daily Note ---
OT Current Status-Daily Note Subjective Up in recliner in own clothing ready to DC to home, request ambualtionin halls and stair education. OT notified PT for stair education and OT completed dual tasking in halls and safe scenarios training Mental Status/Objective Patient Orientation: Person, Place, Time, Situation ADL-Treatment Therapy Code Descriptions/Definitions Functional [place] Measure: 0=Not Assessed/NA 4=Minimal Assistance 1=Total Assistance 5=Supervision or Setup 2=Maximal Assistance 6=Modified [place] 3=Moderate Assistance 7=Complete IndependenceSCALE: Activities may be completed with or without assistive devices. 2-Yhmuzubadl-acmhrsj completes the activity by him/herself with no assistance from a helper. 5-Set-up or Clean-up Assistance-helper sets up or cleans up; patient completes activity. [place] assists only prior to or following the activity. 4-Supervision or Touching Assistance-helper provides verbal cues and/or touching/steadying and/or contact guard assistance as patient completes activity. Assistance may be provided throughout the activity or intermittently. 3-Partial/Moderate Assistance-helper does LESS THAN HALF the effort. [place] lifts, holds or supports trunk or limbs, but provides less than half the effort. 2-Substantial/Maximal Assistance-helper does MORE THAN HALF the effort. [place] lifts or holds trunk or limbs and provides more than half the effort. 8-Ntwjjfytb-msgowj does ALL the effort. Patient does none of the effort to complete the activity. Or, the assistance of 2 or more helpers is required for the patient to complete the activity. If activity was not attempted, code reason: 7-Patient Refused. 9-Not Applicable-not attempted and the patient did not perform the activity before the current illness, exacerbation or injury. 10-Not Attempted due to Environmental Limitations-(lack of equipment, weather restraints, etc.). 88-Not Attempted due to Medical Conditions or Safety Concerns. Eating (QC): 6 Oral Hygiene (QC): 6 Shower/Bathe Self (QC): 7 Upper Body Dressing (QC): 6 (pullover two piece dress set) Lower Body Dressing (QC): 6 On/Off Footwear: 6 Toileting Hygiene (QC): 6 Toilet Transfer (QC): 6 Simulated home environment and use of FWW with side stepping and navigation in crowded areas. Education OT Patient Education: Correct positioning, Purpose of tx/functional activities, Reviewed precautions, Rehab process, Safety issues, Transfer techniques, Use of adapted equipment Teaching Recipient: Patient, Family (spouse present) OT Outside Sales Inspector Goals Outside Sales Inspector Goals Eating (QC): 6 Oral Hygiene (QC): 6 Toileting Hygiene (QC): 6 Shower/Bathe Self (QC): 5 Upper Body Dressing (QC): 6 Lower Body Dressing (QC): 6 On/Off Footwear (QC): 6 Patient will follow all Post op restriction w/I/ADLS and functional mobility independently with ADS 1=Demonstrate adherence to instructed precautions during ADL tasks. 2=Patient will verbalize/demonstrate understanding of assistive devices/modifications for ADL. 3=Patient will improve strength/tolerance for activity to enable patient to perform ADL's. OT Education/Plan Discharge Recommendations Plan/Recommendations: Discharge/Goals Met Treatment Plan/Plan of Care Patient would benefit from OT for education, treatment and training to promote independence in ADL's, mobility, safety and/or upper extremity function for ADL's. Plan of Care: ADL Retraining, Functional Mobility, Group Exercise/Act as Ind, UE Funct Exercise/Act Treatment Duration: Jan 14, 2023 Frequency: 3 times per week (3-5 times per week) Estimated Hrs Per Day: .25 hour per day Agreement: Yes Rehab Potential: Good Time Start Time: 08:51 Stop Time: 09:20 DATE: Jan 11, 2023 Total Time Billed (hr/min): 23 Billed Treatment Time ADL 29 MELANIE POSADAS OT Jan 11, 2023 11:28
== END 2023-01-11 10:35 | disposition home or self-care (01) | DRG 468 ==
LOC: SDC 06:35 → 4TH 12:00 → SDC 01-10 12:27 → 4TH 01-10 12:28
PROVIDERS: ADMIT Orthopaedic Surgery; ATTEND Orthopaedic Surgery
PROC: 0SP90JZ Removal of Synthetic Substitute from Right Hip Joint, Open Approach (ICD-10-PCS; 2023-01-09)
PROC: 0SR902A Replacement of Right Hip Joint with Metal on Polyethylene Synthetic Substitute, Uncemented, Open Approach (ICD-10-PCS; principal; 2023-01-09 09:08)
DX: T84.84XA Pain due to internal orthopedic prosthetic devices, implants and grafts, initial encounter (principal); G25.81 Restless legs syndrome; R11.0 Nausea; Z79.899 Other long term (current) drug therapy; Z88.1 Allergy status to other antibiotic agents; Z88.5 Allergy status to narcotic agent; Z96.641 Presence of right artificial hip joint; Y83.1 Surgical operation with implant of artificial internal device as the cause of abnormal reaction of the patient, or of later complication, without mention of misadventure at the time of the procedure
CPT/HCPCS: 36415; 72170; 85014; 85018

== ENCOUNTER → 2023-01-24 | Outpatient (CLI) | payer MEDICARE, OTHER ==
[~2023-01-24] MED LIST changes: +ACET-93 PO; +ASPI-1238 PO
== END ==
LOC: ORTHO 10:44
PROVIDERS: ATTEND Orthopaedic Surgery
DX: Z47.89 Encounter for other orthopedic aftercare (principal)

== ENCOUNTER → 2023-04-13 | Outpatient (CLI) | payer MEDICARE, OTHER | LOC: ORTHO 09:55 | PROVIDERS: ATTEND Orthopaedic Surgery | DX: Z47.89 Encounter for other orthopedic aftercare (principal) ==